=== PATIENT | female | born 1990 | race Hispanic/Latino ===

== ENCOUNTER 2016-06-15 09:15 | Outpatient (CLI) | payer OTHER ==
[2016-06-15 10:35] LABS: #Basophils 0.1 thou/uL (0.0-0.2); #Lymphocytes 1.4 thou/uL (1.20-3.40); #Monocytes 0.4 thou/uL (0.11-0.59); #Neutrophils 6.1 thou/uL (1.40-6.50); %Basophils 0.8 % (0.0-1.0); %Eosinophils 0.4 % (0.0-10.0); %Lymphocytes 17.6 % (21.0-51.0); %Neutrophils 76.2 % (42.0-75.0); Hemoglobin 12.4 g/dL (12.0-16.0); Mean Corpuscular HGB CONC 34.1 g/dL (32.0-36.0); Mean Corpuscular Hemoglobin 30.9 pg (27.0-31.0); Mean Corpuscular Volume 90.6 fl (81.0-99.0); Mean Platelet Volume 8.3 fL (7.4-10.4); Platelet Count 204 thou/uL (130-400); RBC Distribution Width 12.5 % (11.5-14.5); Red Blood Cell (RBC) Count 4.01 mill/uL (4.20-5.40); White Blood Cell (WBC) Count 8.1 thou/uL (4.8-10.8)
[2016-06-15 15:47] LABS: Amphetamine Not Detected (NotDetected); Benzodiazepine Screen Not Detected (NotDetected); Cocaine Metabolite Screen Not Detected (NotDetected); Methadone Not Detected (NotDetected); Methamphetamine Not Detected (NotDetected); Opiate Screen Not Detected (NotDetected); Phencyclidine (PCP) Not Detected (NotDetected); THC/Cannabinoid Screen Not Detected (NotDetected); Tricyclic Screen Not Detected (NotDetected)
[2016-06-15 15:48] LABS: Barbiturates Screen Not Detected (NotDetected); Medtox Control Line Valid? VALID (VALID); Oxycodone Screen Not Detected (NotDetected)
[2016-06-15 18:18] LABS: HBSAg Index 0.14 S/CO (0-0.99); HIV (1/2) Antibody/Antigen Non-Reactive (NonReactive); HIV 1/2 INDEX 0.16 S/CO (<1.00); Hep B Surf Ag Non-Reactive S/CO (NonReactive)
[2016-06-19 17:53] LABS: Chlamydia by PCR Not Detected (NotDetected); GC by PCR Not Detected (NotDetected)
[2016-06-19 20:09] LABS: AFP MoM 0.83 (.); Alpha-Fetoprotein 33.6 ng/mL (.); DSR by Age 1 in 971 (.); Down Syndrome Risk 2nd Tri 3659 (.); Gest Age on Coll Date 17.4 WEEKS (.); Inhibin A 176.23 pg/mL (.); Insulin Dep Diabetes? No (.); Maternal Age at EDD 26.2 YEARS (.); Method of Estimation As provided (.); Multiple Gestation No (.); OSB Risk 10000 (.); Race Other (.); T18 Risk Not increased (.); Test Results: *Screen Negative* (.); UE3 1.11 ng/mL (.); UE3 MoM 0.94 (.); Weight 144 lbs (.)
== END 2016-06-15 09:16 | disposition home or self-care (01) ==
LOC: MADLABBHPM 09:15
PROVIDERS: ATTEND Family Medicine
DX: Z34.82 Encounter for supervision of other normal pregnancy, second trimester (principal)
CPT/HCPCS: 36415; 80081; 80306; 82105; 82677; 84702; 86336; 87086; 87491; 87591

== ENCOUNTER 2022-09-28 14:08 | Outpatient (CLI) | payer OTHER | END 2022-09-28 14:09 | disposition home or self-care (01) | LOC: MADLABBHPM 14:08 | PROVIDERS: ATTEND Family Medicine | DX: Z01.419 Encounter for gynecological examination (general) (routine) without abnormal findings (principal) | CPT/HCPCS: 87624; 88175 ==